=== PATIENT | male | born 1990 | race African-American/Black ===

== ENCOUNTER 2021-04-18 20:24 | Emergency (ER) | payer OTHER, SELFPAY ==
--- NOTE | ~2021-04-18 | XR_ITS ---
EXAMINATION: XR CHEST CLINICAL INFORMATION: Cough COMPARISON: 01/21/2019 TECHNIQUE: Frontal view of the chest was obtained. FINDINGS: No acute finding. No infiltrate. Lung christians[place] are grossly clear. The mediastinal contours within normal limits. There is no effusion. XR/XR chest 1V IMPRESSION: No acute finding
[2021-04-18 20:27] VITALS: BP 115/66; PULSE 75; RESP 16; TEMP 36.8; O2SAT 96; BMI 21.9
--- NOTE | 2021-04-18 20:59 | ED_ITS ---
HPI - URI/Sore Throat General Chief Complaint: Upper Respiratory Symptoms Stated Complaint: cough Time Seen by Provider: 04/18/21 20:59 Source: patient Mode of arrival: ambulatory Limitations: no limitations History of Present Illness MD elicited complaint: cough and rhinorrhea Pertinent past history: asthma (possible as a child) Onset (ago): day(s) (4) Consistency: constant and progressively worsening Severity: moderate Description of mucous: clear Able to tolerate fluids by mouth: Yes Exacerbating factors: exertion Relieving factors: nothing Associated symptoms: rhinorrhea, nasal congestion, cough, shortness of breath and other (feels his chest is tight, had a bloody nose after blowing his nose really hard) Treatments prior to arrival: none Related Data Previous Rx's Medication Instructions Recorded albuterol sulfate 90 mcg/actuation 2 puff INHALATION QID PRN #6.7 g 04/18/21 aerosol inhaler prednisone 20 mg tablet 60 mg PO DAILY 4 Days #12 tab 04/18/21 Allergies Allergy/AdvReac Type Severity Reaction Status Date / Time No Known Allergies Allergy Verified 04/18/21 20:27 [No Known Allergies*] Review of Systems Review of Systems: Constitutional : No Fever, No Chills ENT/Mouth : No Hoarseness, No sore throat, pos Rhinorrhea Eyes: No Redness, No Discharge, No Vision Changes Cardiovascular : No Chest Pain, positive SOB, positive Dyspnea on Exertion, No Edema Respiratory : positive Cough, No Sputum, positive Wheezing, Gastrointestinal : No Nausea, No Vomiting, No Diarrhea, No abdominal Pain Genitourinary : No Dysuria, No Hematuria Musculoskeletal : No joint pain, No Myalgias Skin : No rash Neuro : No Weakness, No Numbness, No Headache Psych : No anxiety, depression Heme/Lymph: No Bruising, No Bleeding Endocrine : No Polyuria, No Polydipsia All other systems reviewed and are negative [facility] Past Medical History Attestation statement: The following information was validated with the patient. Medical History No known health problems Social History Social History (Updated 04/18/21 @ 21:28 by Saloni Kasper DO) Patient Tobacco Use Status: Current everyday Tobacco user Use of substances other than those prescribed or required for medical reasons: No Advance Directives: No Physical Exam Vital Signs: Vital Signs: Last Vital Signs Temp 98.2 F 04/18/21 20:27 Pulse 75 04/18/21 20:27 Resp 16 04/18/21 20:27 BP 115/66 04/18/21 20:27 Pulse Ox 96 04/18/21 20:27 Body Mass Index 21.9 Appearance: Alert. Oriented X3. No acute distress. Eyes: Pupils equal, round and reactive to light. ENT: Pharynx normal. Neck: Normal inspection. Neck supple. CVS: Normal heart rate and rhythm. Pulses normal. Respiratory: No respiratory distress. Breath sounds diffuse end exp wheezes Abdomen: Soft and nontender. Skin: Skin warm and dry. Normal skin color. Normal skin turgor. Extremities: No lower extremity edema. No calf ttp Neuro: Oriented X 3. No motor deficit. No sensory deficit. Course Course Course Narrative: after INH the patient feels much better and is asking to leave prior to COVID result MDM - URI/Sore Throat MDM Narrative Medical decision making narrative: 30 yo male with possible remote hx of asthma as a child here with wheezing and URI symptoms - at this time not toxic, given INH, no chest pain/tachycardia doubt PE, start on steroids - COVID swab and CXR ordered in triage, no hypoxia looks well Discharge Plan Discharge Clinical Impression: Acute bronchospasm Upper respiratory infection Qualifiers: URI type: unspecified viral URI Qualified Code(s): J06.9 - Acute upper respiratory infection, unspecified Patient Disposition: Home, Self-Care Additional Instructions: return to ED for any worsening symptoms or concerns COVID test is still pending we will call you if positive USE INHALER 2 PUFFS EVERY 3 HOURS NEEDED FOR COUGH, SHORTNESS OF BREATH Prescriptions: New prednisone 20 mg tablet 60 mg PO DAILY 4 Days Qty: 12 RF: 0 albuterol sulfate 90 mcg/actuation HFA aerosol inhaler 2 puff inhalation QID PRN (Reason: shortness of breath or wheezing) Qty: 6.7 RF: 0 Stand Alone Forms: Work/School Release
[2021-04-18 21:25] VITALS: PULSE 78; O2SAT 95
[2021-04-18] MEDS: Albuterol Sulfate 90 MCG 8 GM INHALER 4 PUFF INHALE (21:25)
[2021-04-18] MEDS: predniSONE 20 MG TABLET 60 MG PO (21:26)
[2021-04-18 21:36] LABS: Influenza A PCR NEGATIVE (Negative); Influenza B PCR NEGATIVE (Negative); Resp Syncy Virus RNA Qual PCR NEGATIVE (Negative); SARS COV2 PCR INHOUSE NEGATIVE (Negative)
== END 2021-04-18 21:43 | disposition home or self-care (01) ==
PROVIDERS: Emergency Provider Emergency Medicine
DX: J98.01 Acute bronchospasm (principal); J06.9 Acute upper respiratory infection, unspecified; Z20.822 Contact with and (suspected) exposure to COVID-19
CPT/HCPCS: 0241U; 36415; 71045; 94640; 94664; 99283; 99284

== ENCOUNTER 2021-12-07 22:21 | Emergency (ER) | payer OTHER, SELFPAY ==
[2021-12-07 22:36] VITALS: BP 125/74; PULSE 63; RESP 18; TEMP 36.2; O2SAT 96; BMI 21.8
--- NOTE | 2021-12-08 00:32 | ED_ITS ---
HPI - Dental/Oral General Chief complaint: Dental/Oral Stated complaint: top/ bottom right and bottom left tooth infection? Time Seen by Provider: 12/07/21 23:47 Source: patient Mode of arrival: ambulatory Limitations: no limitations History of Present Illness HPI Narrative: 31-year-old male who came in for dental pain and mouth pain for few weeks. Patient do not have health/dental insurance, for the last few weeks been having dental pain due to dental decay. Patient declined any fever or chills. Related Data Previous Rx's Medication Instructions Recorded albuterol sulfate 90 mcg/actuation 2 puff INHALATION QID PRN #6.7 g 04/18/21 aerosol inhaler prednisone 20 mg tablet 60 mg PO DAILY 4 Days #12 tab 04/18/21 amoxicillin 500 mg tablet 500 mg PO BID #14 tab 12/08/21 ibuprofen 800 mg tablet 800 mg PO Q8H PRN #14 tab 12/08/21 Allergies Allergy/AdvReac Type Severity Reaction Status Date / Time No Known Allergies Allergy Verified 12/07/21 22:36 [No Known Allergies*] Review of Systems Review of Systems: All other systems are reviewed and are negative Constitutional: Reports as per HPI and Reports no additional constitutional complaints Eyes: Reports as per HPI and Reports no additional eye complaints Reports system reviewed and no additional complaints, except as documented Cardiovascular: Reports as per HPI and Reports no additional cardiovascular complaints Respiratory: Reports as per HPI and Reports no additional respiratory complaints Gastrointestinal: Reports as per HPI and Reports no additional gastrointestinal complaints Genitourinary: Reports no additional female genitourinary complaints Musculoskeletal: Reports no additional musculoskeletal complaints Skin/Breast: Reports system reviewed and no additional complaints, except as docu Psychiatric: Reports no additional psychiatric complaints Endocrine: Reports no additional endocrine complaints Hematologic/Lymphatic: Reports no additional hematologic/lymphatic complaints Allergic/Immunologic: Reports no additional allergic/immunologic complaints Reports system reviewed and no additional complaints, except as documented and Reports Abnormal speech present [facility] Past Medical History Medical History No known health problems Social History Social History Patient Tobacco Use Status: Current everyday Tobacco user Advance Directives: No Physical Exam Vital Signs: Vital Signs: Last Vital Signs Temp 97.2 F 03/29/22 22:36 Pulse 63 12/07/21 22:36 Resp 18 12/07/21 22:36 BP 125/74 12/07/21 22:36 Pulse Ox 96 12/07/21 22:36 BMI result Body Mass Index 21.8 Vital signs have been reviewed as appeared to be correct. Blood pressure normal. Heart rate normal. Respiration rate normal. Temperature normal. Oxygen saturation normal. Appearance: Alert. Oriented X3. No acute distress. Head: Normal external exam. Normocephalic. Atraumatic. No Victoria signs noted. No raccoon eyes noted. Dental exam: Left lower tooth 18. And right upper tooth 2. And right lower tooth number 31 was generalized decay, no gum fluctuation. Eyes: PERRLA. EOMI. Conjunctiva and sclera normal. Eyelids normal. ENT: TM's Normal. Pharynx normal. Uvula midline. Moist mucous membranes. No trismus noted. No drooling noted. No muffled voice noted. Neck: Normal inspection. Neck supple. FROM. No adenopathy. Thyroid Normal. No meningeal signs. No neck mass noted. CVS: Normal heart rate and rhythm. Heart sound normal. No murmurs noted. Pulses normal throughout. Respiratory: No respiratory distress. Painless inspiration. Breath sounds normal. No wheezes/rales/rhonchi noted. Chest nontender. No accessory muscle usage noted or decreased air movement noted. Abdomen: Soft and nontender. Bowel sounds normal in all 4 quadrants. No distention noted. No organomegaly noted. No visible injury noted. Back: No CVA tenderness. Full range of motion noted. Skin: Skin warm and dry. Normal skin color. Normal skin turgor. No rashes/lesions/lacerations noted. Extremities: No lower extremity edema. Extremities exhibit normal range of motion. Extremities nontender. Neuro: Oriented X 3. Cranial nerve exam: II-XII are grossly intact No motor deficit. No sensory deficit. Reflexes normal. Course Course Course Narrative: Assessment and plan. 31-year-old male with no health/dental insurance with no dental care for many years came in with multiple tooth decay and mild gum infection with no abscess formation. Start the patient on amoxicillin/NSAIDs/follow-up with the dentist. Discharge Plan Discharge Clinical Impression: Toothache, Dental caries Patient Disposition: Home, Self-Care Instructions: Toothache (ED) Prescriptions: New amoxicillin 500 mg tablet 500 mg PO BID Qty: 14 0RF ibuprofen 800 mg tablet 800 mg PO Q8H PRN (Reason: pain) Qty: 14 0RF No Action prednisone 20 mg tablet 60 mg PO DAILY 4 Days Qty: 12 0RF albuterol sulfate 90 mcg/actuation HFA aerosol inhaler 2 puff inhalation QID PRN (Reason: shortness of breath or wheezing) Qty: 6.7 0RF
[2021-12-08] MEDS: oxyCODONE HCl Immed Release 5 MG TABLET PO (00:49)
[2021-12-08] MEDS: Amoxicillin 500 MG CAPSULE PO (00:49)
== END 2021-12-08 00:57 | disposition home or self-care (01) ==
PROVIDERS: Emergency Provider Emergency Medicine
DX: K08.89 Other specified disorders of teeth and supporting structures (principal); K02.9 Dental caries, unspecified; F17.200 Nicotine dependence, unspecified, uncomplicated
CPT/HCPCS: 99283

== ENCOUNTER 2022-03-24 20:23 | Emergency (ER) | payer OTHER, SELFPAY | END 2022-03-24 22:06 | disposition left against medical advice (07) | PROVIDERS: Emergency Provider Emergency Medicine | DX: K91.840 Postprocedural hemorrhage of a digestive system organ or structure following a digestive system procedure (principal) ==

== ENCOUNTER 2022-05-24 08:54 | Emergency (ER) | payer OTHER, SELFPAY ==
[2022-05-24 09:34] VITALS: BP 123/73; PULSE 56; RESP 18; TEMP 36.8; O2SAT 100; BMI 21.9
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
--- NOTE | 2022-05-24 10:57 | PC.NURSE ---
EVALUATED BY PROVIDER PLAN IS FOR [facility] DISHCARGED BY KASANDRA RODRIGUEZ
== END 2022-05-24 11:01 | disposition home or self-care (01) ==
PROVIDERS: Emergency Provider Emergency Medicine
DX: S39.012A Strain of muscle, fascia and tendon of lower back, initial encounter (principal); V44.6XXA Car passenger injured in collision with heavy transport vehicle or bus in traffic accident, initial encounter; F17.200 Nicotine dependence, unspecified, uncomplicated; Y93.89 Activity, other specified; Y92.414 Local residential or business street as the place of occurrence of the external cause; Y99.9 Unspecified external cause status
CPT/HCPCS: 99282; 99283